=== PATIENT | female | born 1995 | race Caucasian/White ===

== ENCOUNTER 2016-12-08 20:27 | Emergency (ER) | payer OTHER ==
[~2016-12-08] VITALS: Wt 137.4 kg
[~2016-12-08 20:27] MED LIST: AMOXICILLIN500 M2 PO; NKHM
== END 2016-12-08 20:47 | disposition home or self-care (01) ==
LOC: ED 20:27
DX: S90.02XA Contusion of left ankle, initial encounter (principal); W20.8XXA Other cause of strike by thrown, projected or falling object, initial encounter; Y93.89 Activity, other specified; Y92.9 Unspecified place or not applicable; Y99.9 Unspecified external cause status

== ENCOUNTER 2018-05-19 08:39 | Emergency (ER) | payer OTHER ==
[~2018-05-19] VITALS: Ht 167.6 cm; Wt 140.6 kg
[2018-05-19] MEDS ORDERED: AUGMENTIN 875875 MG PO (08:56)
[2018-05-19] MEDS ORDERED: Motrin,Rufen800 MG PO (08:56)
== END 2018-05-19 09:50 | disposition home or self-care (01) ==
LOC: ED 08:39
DX: H60.91 Unspecified otitis externa, right ear (principal)

== ENCOUNTER → 2019-03-09 | Outpatient (CLI) | payer OTHER ==
[~2019-03-09] MED LIST changes: +AUGMENTIN 875875 MG PO; +Motrin,Rufen800 MG PO
== END | disposition home or self-care (01) ==
LOC: US 02-20 07:30
DX: K76.0 Fatty (change of) liver, not elsewhere classified (principal)